=== PATIENT | male | born 1950 | race Caucasian/White ===

== ENCOUNTER → 2018-10-03 | Outpatient (REF) | payer OTHER ==
[2018-10-03 16:55] LABS: BLOOD UREA NITROGEN 19 MG/DL (7-18); GLOMERULAR FILTRATION RATE > 60.0 (>49)
== END ==
LOC: M LABDRAW1 15:56
PROVIDERS: ATTEND Pain Medicine Interventional Pain Medicine
DX: M96.1 Postlaminectomy syndrome, not elsewhere classified (principal)

== ENCOUNTER → 2019-06-03 | Outpatient (REF) | payer OTHER ==
[2019-06-03 15:33] LABS: BASO % 0.5 % (0.0-1.0); EOS # 0.2 10^3/uL (0.0-0.5); EOS % 2.4 % (0.0-3.0); HEMATOCRIT 40.1 % (42.0-52.0); HEMOGLOBIN 14.3 g/dl (13.5-17.5); LYMPH # 1.9 10^3/uL (1.5-5.0); LYMPH % 28.6 % (24.0-44.0); MEAN CORPUSCULAR HEMOGLOBIN 33.6 pg (27.0-33.0); MEAN CORPUSCULAR HGB CONC 35.7 g/dl (32.0-36.5); MEAN CORPUSCULAR VOLUME 94.4 fl (80.0-96.0); MONO # 0.5 10^3/uL (0.0-0.8); MONO % 7.1 % (0.0-5.0); NEUTROPHILS % 61.1 % (36.0-66.0); PLATELET COUNT, AUTOMATED 129 10^3/uL (150-450); RED BLOOD COUNT 4.25 10^6/uL (4.30-6.10); WHITE BLOOD COUNT 6.6 10^3/uL (4.0-10.0)
[2019-06-03 15:46] LABS: ALBUMIN 4.3 GM/DL (3.2-5.2); ALT/SGPT 70 U/L (12-78); BILIRUBIN,TOTAL 1.2 MG/DL (0.2-1.0); BLOOD UREA NITROGEN 18 MG/DL (7-18); CALCIUM LEVEL 9.1 MG/DL (8.8-10.2); CARBON DIOXIDE LEVEL 32 MEQ/L (21-32); CHLORIDE LEVEL 100 MEQ/L (98-107); CREATININE FOR GFR 1.09 MG/DL (0.70-1.30); GLOMERULAR FILTRATION RATE > 60.0 (>49); GLUCOSE, FASTING 303 MG/DL (70-100); INR 1.09; POTASSIUM SERUM 4.2 MEQ/L (3.5-5.1); PROTHROMBIN TIME 13.8 SECONDS (11.8-14.0); SODIUM LEVEL 138 MEQ/L (136-145); TOTAL PROTEIN 7.2 GM/DL (6.4-8.2)
[2019-06-03 15:47] LABS: PARTIAL THROMBOPLASTIN TIME 29.7 SECONDS (25.0-38.4)
[2019-06-03 15:48] LABS: HEMOGLOBIN A1c 7.7 %
== END ==
LOC: M SFHCPLAZ 12:46
PROVIDERS: ATTEND Family Medicine
DX: Z01.818 Encounter for other preprocedural examination (principal)

== ENCOUNTER 2020-04-15 16:31 | Emergency (ER) | payer MEDICARE, OTHER ==
[~2020-04-15] VITALS: Ht 177.8 cm; Wt 102.3 kg
[2020-04-15 18:03] LABS: ABG BASE EXCESS 1.6 (-2.0-2.0); ABG HCO3 24.9 MEQ/L (22.0-26.0); ABG O2 SATURATION 97.6 % (95.0-99.0); ABG PARTIAL PRESSURE CO2 34.6 mmHg (35.0-45.0); ABG PARTIAL PRESSURE O2 99.4 mmHg (75.0-100.0); ABG STANDARD HCO3 25.9 MEQ/L (22.0-26.0); ABG pH (ARTERIAL) 7.475 UNITS (7.350-7.450)
--- NOTE | 2020-04-15 18:43 | REP ---
INDICATION: COVID pos, cough. COMPARISON: Comparison radiographs August 19, 2007.. TECHNIQUE: Portable sitting AP chest radiograph. FINDINGS: Monitoring electrodes are seen. There is linear platelike atelectasis and hazy opacity in the right base. A subtle infiltrate here is suspected. Remaining lung dewitt are clear. The pleural angles are sharp. Heart size is borderline. Pulmonary vasculature is not increased. No acute bony abnormality is seen. IMPRESSION: Platelike atelectasis with suspected subtle infiltrate right base. Borderline heart size. Otherwise negative. <Electronically signed by Ricardo Cao > 04/15/20 [id number]
[2020-04-15 19:30] VITALS: BP 133/78
--- NOTE | 2020-04-17 11:03 | ED PDOC ---
Post-Departure Follow-Up dr candelario barry faxed formal report of cxr for fu Josias Wilkins MD Apr 17, 2020 11:03
== END 2020-04-15 20:11 | disposition home or self-care (01) ==
LOC: M ED 16:31
DX: R06.02 Shortness of breath (principal); B34.2 Coronavirus infection, unspecified; E11.9 Type 2 diabetes mellitus without complications; I10 Essential (primary) hypertension; E78.5 Hyperlipidemia, unspecified; E66.9 Obesity, unspecified; Z87.891 Personal history of nicotine dependence